=== PATIENT | male | born 1955 | race Two or more races ===

== ENCOUNTER 2019-04-04 15:25 | Emergency (ER) | payer SELFPAY ==
[~2019-04-04] VITALS: Ht 157.5 cm; Wt 62.6 kg
[2019-04-04 15:53] VITALS: BP 117/73
[2019-04-04] MEDS ORDERED: KETOROLAC TROMETH 60MG/2ML VIAL IM ONE (19:45)
== END 2019-04-04 19:59 | disposition home or self-care (01) ==
LOC: ER 15:25
DX: S33.5XXA Sprain of ligaments of lumbar spine, initial encounter (principal); G58.9 Mononeuropathy, unspecified; X58.XXXA Exposure to other specified factors, initial encounter; Y93.89 Activity, other specified; Y99.8 Other external cause status; Y92.89 Other specified places as the place of occurrence of the external cause
CPT/HCPCS: 72100; 93005; 96372; 99283; J1885